=== PATIENT | male | born 1935 | race Caucasian/White ===

== ENCOUNTER 2018-02-02 19:58 | Emergency (ER) | payer MEDICARE ==
[2018-02-02 20:20] VITALS: BP 135/81
--- NOTE | 2018-02-02 20:51 | UC ---
Knee Pain HPI - HPI Summary HPI Summary: PT C/O SUDDEN ONSET PAIN to left medial knee pain that began this evening. Denies injury, previous trauma or surgey, no hx of DVT, no swelling no erythema. Does have c/o feeling that it going to "give out" and is using crutches from home. Pt states that he was hospitalized over weekend and for several days after for GI bleed and was hospitalized at [place]. Pt reports that zafar he was active with activity and mowed his lawn, used a chainsaw, stood for prolonged period of time at store with daughter and now has c/o left medial knee pain. - History of Current Complaint Hx Obtained From: Patient Onset/Duration: Sudden Onset, Lasting Hours, Still Present Severity Initially: Severe Severity Currently: Severe Pain Intensity: 10 Character: Sharp - with palpation, Dull, Aching Aggravating Factor(s): Movement, Weight Bearing, Prolonged Standing, Stairs Alleviating Factor(s): Rest, Position Associated Signs And Symptoms: Positive: Negative Able to Bear Weight: Yes - minimal - Risk Factors Septic Arthritis Risk Factor: Extremes of Age Gout Risk Factor: Age ^ 41, Male <Nadia Li NP - Last Filed: 02/02/18 20:55> <Vikash Rapp - Last Filed: 02/02/18 21:41> - History of Current Complaint Chief Complaint: UCLowerExtremity Stated Complaint: LEFT KNEE PAIN Time Seen by Provider: 02/02/18 20:34 - Allergies/Home Medications Allergies/Adverse Reactions: Allergies Allergy/AdvReac Type Severity Reaction Status Date / Time No Known Allergies Allergy Verified 02/02/18 20:20 PMH/Surg Hx/FS Hx/Imm Hx Previously Healthy: Yes GI/ History: Gastrointestional Bleed - Surgical History Surgical History: Yes Surgery Procedure, Year, and Place: prostatectomy. appendectomy. hernia - Family History Known Family History: Positive: Cardiac Disease - Social History Occupation: Retired Alcohol Use: Occasionally Substance Use Type: None Smoking Status (MU): Former Smoker Type: Smokeless Tobacco Amount Used/How Often: 2 cans per week Have You Smoked in the Last Year: Yes - chewing tobacco <Nadia Li NP - Last Filed: 02/02/18 20:55> Review of Systems Constitutional: Negative Skin: Negative Eyes: Negative ENT: Negative Respiratory: Negative Cardiovascular: Negative Gastrointestinal: Negative Genitourinary: Negative Motor: Decreased ROM - pain with ROM Neurovascular: Negative Musculoskeletal: Arthralgia - left medial knee at joint space, Decreased ROM - pain with ROM, Myalgia Neurological: Negative Psychological: Negative Is Patient Immunocompromised?: No All Other Systems Reviewed And Are Negative: Yes <Nadia Li NP Last Filed: 02/02/18 20:55> Physical Exam Triage Information Reviewed: Yes Appearance: Well-Appearing, Pain Distress - with examination Vital Signs: Initial Vital Signs Temp 98.8 F 02/02/18 20:12 Pulse 103 02/02/18 20:12 Resp 16 02/02/18 20:12 BP 135/81 02/02/18 20:12 Pulse Ox 97 02/02/18 20:12 Vital Signs Reviewed: Yes Eye Exam: Normal ENT: Positive: Hearing grossly normal - wears hearing aides Neck exam: Normal Respiratory: Positive: No respiratory distress Musculoskeletal Exam: Other Musculoskeletal: Positive: Strength Limited @ - c/o pain with weight bearing, ROM Limited @ - pain with valgum/varus testing Neurological Exam: Normal Psychological Exam: Normal Skin Exam: Normal - no erythema, no edema <Nadia Li NP Last Filed: 02/02/18 20:55> Vital Signs: Initial Vital Signs Temp 98.8 F 02/02/18 20:12 Pulse 103 02/02/18 20:12 Resp 16 02/02/18 20:12 BP 135/81 02/02/18 20:12 Pulse Ox 97 02/02/18 20:12 <Vikash Rapp - Last Filed: 02/02/18 21:41> Knee Pain Course/Dx - Course Course Of Treatment: I discussed with th pt the need for further evaluation and testing. I also discussed with the pt the need to seek care if symptoms worsen. Pt verbalized understanding and agreed to plan of care. - Differential Dx/Diagnosis Differential Diagnosis/HQI/PQRI: Bursitis, DVT, Gout, Tendonitis Provider Diagnoses: left knee pain <Nadia Li NP Last Filed: 02/02/18 20:55> Discharge - Sign-Out/Discharge Documenting (check all that apply): Discharge/Admit/Transfer - Billing Disposition and Condition Condition: STABLE Disposition: Home <Jen ALICEA,Nadia Randolph - Last Filed: 02/02/18 20:55> - Billing Disposition and Condition Condition: STABLE Disposition: Home <TamelaVikash Arelis - Last Filed: 02/02/18 21:41> - Discharge Plan Condition: Stable Disposition: HOME Patient Education Materials: Knee Pain (ED) Referrals: Jaison Roberts MD [Medical Doctor] - If Needed Delia Escamilla MD [Primary Care Provider] - As Soon As Possible Additional Instructions: PLEASE SEEK MEDICAL CARE IMMEDIATELY IF YOUR SYMPTOMS WORSEN AT ANY TIME. Per institutional requirements, I have reviewed the chart, however, I was not consulted specifically or made aware of this patient by the above midlevel provider. I did not personally evaluate, interact with , or disposition this patient.
[2018-02-02] MEDS ORDERED: Acetaminophen TAB* 325 MG PO ONE (20:52)
== END 2018-02-02 21:01 | disposition home or self-care (01) ==
LOC: UCCORT 19:58
DX: M25.562 Pain in left knee (principal); Z87.891 Personal history of nicotine dependence; X50.0XXA Overexertion from strenuous movement or load, initial encounter; Y93.89 Activity, other specified; Y92.9 Unspecified place or not applicable
CPT/HCPCS: 99211; A9270-GY; G0463

== ENCOUNTER 2018-12-25 13:18 | Emergency (ER) | payer MEDICARE, BC ==
[2018-12-25 14:06] VITALS: BP 115/68
[2018-12-25] MEDS ORDERED: Albuterol/Ipratropium NEB.SOL* Albuterol 2.5 MG/Ipratropium 0.5 MG 3 ML INH ONE (14:34)
--- NOTE | 2018-12-25 14:34 | UC ---
UC General HPI - HPI Summary HPI Summary: day 7 of cough, sob, fatigue and weakness. hx copd and asthma. insurance service representative started him on prednisone 4 days ago with no relief. denies fever and cp. no hx cardiac disease. pt restarted his home O2 as well. states this usually needs an a zpak. - History of Current Complaint Chief Complaint: UCGeneralIllness Stated Complaint: COUGH Time Seen by Provider: 12/25/18 14:26 Hx Obtained From: Patient, Family/Safety Equipment Tester Onset/Duration: Gradual Onset Timing: Constant Pain Intensity: 0 Aggravating: activity Associated Signs & Symptoms: Positive: Cough, SOB. Negative: Chest Pain - Allergy/Home Medications Allergies/Adverse Reactions: Allergies Allergy/AdvReac Type Severity Reaction Status Date / Time No Known Allergies Allergy Verified 12/25/18 14:07 Home Medications: Home Medications Rosuvastatin Calcium [Crestor] 5 mg PO DAILY 12/25/18 [History Confirmed ] PMH/Surg Hx/FS Hx/Imm Hx - Additional Past Medical History Additional PMH: "PIGEON SHIT DISEASE", "SCARS ON LUNGS AND EYES" Endocrine History: Dyslipidemia Respiratory History: COPD, Asthma GI/ History: Gastroesophageal Reflux - Surgical History Surgical History: Yes Surgery Procedure, Year, and Place: prostatectomy. appendectomy. hernia. right shoulder replacement - Family History Known Family History: Positive: Cardiac Disease - Social History Lives: With Family Alcohol Use: Occasionally Substance Use Type: None Smoking Status (MU): Former Smoker Type: Smokeless Tobacco Amount Used/How Often: 2 cans per week Have You Smoked in the Last Year: Yes - chewing tobacco When Did the Patient Quit Smoking/Using Tobacco: quit 3 months ago Review of Systems All Other Systems Reviewed And Are Negative: Yes Constitutional: Positive: Fatigue Respiratory: Positive: Shortness Of Breath, Cough Cardiovascular: Negative: Palpitations, Chest Pain Motor: Positive: Weakness Musculoskeletal: Negative: Edema Physical Exam Triage Information Reviewed: Yes Appearance: Well-Appearing Vital Signs: Initial Vital Signs Temp 97.7 F 12/25/18 13:59 Pulse 72 12/25/18 13:59 Resp 20 12/25/18 13:59 BP 115/68 12/25/18 13:59 Pulse Ox 97 12/25/18 13:59 Vital Signs Reviewed: Yes Eyes: Positive: Conjunctiva Clear ENT: Positive: Pharynx normal, TMs normal. Negative: Nasal congestion, Nasal drainage Neck: Positive: Supple, Nontender, No Lymphadenopathy, Other: - No jvd Respiratory: Positive: Lungs clear, Decreased breath sounds, Other: - Mild dyspnea with conversation. Cardiovascular: Positive: RRR, No Murmur Abdomen Description: Positive: Nontender Bowel Sounds: Positive: Present Musculoskeletal: Positive: ROM Intact, No Edema Neurological: Positive: Alert Psychological: Positive: Age Appropriate Behavior Skin Exam: Normal Diagnostics - Radiology No standard instances Radiology Interpretation Completed By: Radiologist - cxr=IMPRESSION: CHRONIC FINDINGS INCLUDE MULTIFOCAL CALCIFIED GRANULOMAS WITHOUT RADIOGRAPHICALLY APPARENT ACUTE CARDIOPULMONARY ABNORMALITY. - EKG Cardiac Rate: NL Cardiac Rhythm: Sinus: Normal Ectopy: None Summary of EKG Findings: 1mm ST elevation II, II, AVF Re-Evaluation - Re-Evaluation First Eval Re-Evaluation Time: 15:16 Change: Unchanged Course/Dx - Course Course Of Treatment: ekg shows 1mm ST elevation in inferior leads. his copd/asthma is not responding to his home tx plus he is c/o fatigue and weakness thus ER transfer indicated. Ambulance advised but pt is refusing despite risk of worsening, delay of care, risk for mva, disability and . he is a&ox3 and able to make decisions thus must respect the refusal. his at bedside refused ems as well. [facility] called. Report given to Derik Morgan NP. advised of EKG with st elevation in inferior leads, dyspnea, weak, fatigued and not improving with his copd/asthma tx. - Diagnoses Provider Diagnosis: EKG abnormalities, Dyspnea Discharge - Sign-Out/Discharge Documenting (check all that apply): Patient Departure All imaging exams completed and their final reports reviewed: Yes - Discharge Plan Condition: Stable Disposition: TRANS HIGHER LVL OF CARE FAC Referrals: Delia Escamilla MD [Primary Care Provider] - Additional Instructions: LEAVE HERE AND GO DIRECTLY TO THE [facility] DISCUSSED. - Billing Disposition and Condition Condition: STABLE Disposition: Trans Higher Lvl of Care Fac
[2018-12-25] MEDS ORDERED: Aspirin 81 mg CHEW TAB* 81 MG TAB.CHEW PO ONE (15:03)
== END 2018-12-25 15:20 | disposition short-term general hospital (02) ==
LOC: UCCORT 13:18
DX: R94.31 Abnormal electrocardiogram [ECG] [EKG] (principal); R06.00 Dyspnea, unspecified; J44.9 Chronic obstructive pulmonary disease, unspecified; J45.909 Unspecified asthma, uncomplicated; E78.5 Hyperlipidemia, unspecified; K21.9 Gastro-esophageal reflux disease without esophagitis
CPT/HCPCS: 71046; 93005; 99212; A9270-GY; G0463